=== PATIENT | female | born 1965 | race Caucasian/White ===

== ENCOUNTER 2020-12-08 23:16 | Emergency (ER) | payer MEDICAID ==
[~2020-12-08] VITALS: Ht 167.6 cm; Wt 78.0 kg
[2020-12-08] MEDS ORDERED: MECLIZINE 25MG TABLET PO ONE (23:45)
[2020-12-08] MEDS ORDERED: METOPROLOL TARTRATE 25MG TABLET PO ONE (23:45)
[2020-12-08] MEDS ORDERED: ONDANSETRON 4MG ODT PO ONE (23:45)
[2020-12-09 01:43] VITALS: BP 173/100
== END 2020-12-09 01:44 | disposition home or self-care (01) ==
LOC: ER 23:16
DX: I10 Essential (primary) hypertension (principal); Z91.14 Patient's other noncompliance with medication regimen
CPT/HCPCS: 93005; 99284; J8597; Q0162

== ENCOUNTER 2025-07-03 12:31 | Emergency (ER) | payer MEDICAID, OTHER ==
[~2025-07-03] VITALS: Ht 165.1 cm; Wt 90.0 kg
[2025-07-03 12:34] VITALS: O2SAT 97
[2025-07-03] MEDS: ONDANSETRON HCL 4MG/2ML INJ IV ONE (13:09)
[2025-07-03] MEDS: SODIUM CHLORIDE 0.9% 1,000 ML IV ONE (13:09)
[2025-07-03] MEDS: DIPHENHYDRAMINE 50MG/ML VIAL IV ONE (13:09)
[2025-07-03] MEDS: PANTOPRAZOLE SODIUM 40 MG/VIAL IV ONE (13:10)
[2025-07-03] MEDS: MECLIZINE 25MG TABLET PO STA (13:10)
[2025-07-03 13:31] LABS: BASOPHILS % 0.7 % (0.0-2.0); EOSINOPHILS % 2.9 % (0.0-5.0); HEMATOCRIT. 35.5 % (36.0-48.0); HEMOGLOBIN. 11.8 g/dL (12.0-16.0); LYMPHOCYTES % 27.7 % (20.0-50.0); MEAN PLATELET VOLUME 9.4 fl (7.4-10.4); MONOCYTES % 6.3 % (2.0-8.0); NEUTROPHILS % 62.4 % (40.0-76.0); PLATELET 194 x1000/uL (130-400); RED BLOOD CELL COUNT 3.72 mill/uL (4.2-5.4); RED CELL DISTRIBUTION WIDTH 14.4 % (11.6-14.6)
[2025-07-03 13:39] LABS: INR 0.9
[2025-07-03 13:50] LABS: CREATININE 2.5 mg/dL (0.6-1.0); TROPONIN I HIGH SENSITIVITY 4 ng/L (3.0-34)
[2025-07-03 13:51] LABS: ETHANOL BLOOD < 10 mg/dL (<10); UREA NITROGEN BLOOD 39 mg/dL (9-23)
[2025-07-03 13:52] LABS: ASPARTATE AMINOTRANSFERASE 18 IU/L (<34); BILIRUBIN DIRECT < 0.1 mg/dL (<=3.0)
[2025-07-03 13:53] LABS: BILIRUBIN TOTAL 0.4 mg/dL (0.1-1.0); PROTEIN TOTAL 7.2 g/dL (6.0-8.3)
[2025-07-03 15:02] LABS: CLARITY URINE CLEAR (CLEAR); COLOR URINE YELLOW (YELLOW); GLUCOSE URINE NEGATIVE (NEGATIVE); KETONES URINE NEGATIVE (NEGATIVE); LEUKOCYTE ESTERASE URINE 1+ (NEGATIVE); NITRITE URINE NEGATIVE (NEGATIVE); OCCULT BLOOD URINE NEGATIVE (NEGATIVE); PH URINE 7.5 (4.5-8.0); PROTEIN URINE 2+ (NEGATIVE); SPECIFIC GRAVITY URINE 1.009 (1.005-1.030); UROBILINOGEN URINE 0.2 E.U./dL (0.2-1.0)
[2025-07-03] MEDS: LABETALOL 5MG/ML 4ML INJ IV ONE (15:10)
[2025-07-03 15:33] LABS: *AMPHETAMINES SCREEN URINE NEGATIVE (NEGATIVE); *BARBITURATES SCREEN URINE NEGATIVE (NEGATIVE); *BENZODIAZEPINES SCREEN URINE NEGATIVE (NEGATIVE); *COCAINE SCREEN URINE NEGATIVE (NEGATIVE); CANNABINOID URINE SCREEN NEGATIVE (NEGATIVE); METHADONE URINE SCREEN NEGATIVE (NEGATIVE); OPIATES URINE SCREEN NEGATIVE (NEGATIVE); PHENCYCLIDINE URINE SCREEN NEGATIVE (NEGATIVE)
[2025-07-03 15:34] LABS: ECSTASY MDMA SCREEN URINE NEGATIVE (NEGATIVE)
[2025-07-03 15:38] LABS: SQUAMOUS EPITHELIAL CELL URINE 2+ /lpf (RARE/1+)
[2025-07-03 15:39] LABS: RBC URINE NONE SEEN /hpf (0-2)
[2025-07-03 15:40] LABS: BACTERIA URINE 4+
[2025-07-03] MEDS: METOCLOPRAMIDE HCL 10MG/2ML VIAL IV ONE (15:49)
[2025-07-03] MEDS: DIAZEPAM 5 MG/ML 2ML SYR IV ONE (15:50)
[2025-07-03 16:33] VITALS: TEMP 36.5
[2025-07-03 18:04] VITALS: BP 151/91; PULSE 69; RESP 16; O2SAT 99
== END 2025-07-03 18:29 | disposition short-term general hospital (02) ==
LOC: ER 12:31 → CMPBEDREQ 07-04 16:20
DX: R42 Dizziness and giddiness (principal); R11.2 Nausea with vomiting, unspecified; N17.9 Acute kidney failure, unspecified; I10 Essential (primary) hypertension; E11.9 Type 2 diabetes mellitus without complications; Z98.890 Other specified postprocedural states; Z79.899 Other long term (current) drug therapy
CPT/HCPCS: 80076; 80305; 80048; 81003; 80320; 83880; 83690; 83735; 85025; 85610; 84484; 36415; 71045; 70450; 74176; 93005; 96365; 96366; 96375; 99285; J3360; J1200; J3490; J2765; J2405; J2470; J7030; Z7610; G0480